=== PATIENT | male | born 2000 | race Two or more races ===

== ENCOUNTER 2022-10-14 21:42 | Emergency (ER) | payer OTHER ==
[~2022-10-14] VITALS: Ht 170.2 cm; Wt 59.0 kg
[2022-10-15 02:04] VITALS: BP 123/71
[2022-10-15] MEDS ORDERED: NEOMYCIN-BACITRACIN-POLYM UNITDOSE PKG TOP OINT TOP ONE (02:45)
[2022-10-15] MEDS ORDERED: IBUPROFEN 600 MG TAB PO ONE (02:45)
[2022-10-15] MEDS ORDERED: LIDOCAINE 1% HCL (LOCAL ANESTH.) INJ 20ML MDV ID ONE (02:45)
[2022-10-15] MEDS ORDERED: CEPHALEXIN 250 MG CAP PO ONE (04:30)
[2022-10-15] MEDS ORDERED: CEPH500T PO (04:47)
[2022-10-15] MEDS ORDERED: CYCL-839 PO (04:47)
[2022-10-15] MEDS ORDERED: MUPI2OIN2 EX (04:47)
[2022-10-15] MEDS ORDERED: IBU600T PO (04:47)
== END 2022-10-15 04:54 | disposition home or self-care (01) ==
LOC: ER 21:42
DX: S01.01XA Laceration without foreign body of scalp, initial encounter (principal); S50.311A Abrasion of right elbow, initial encounter; S40.211A Abrasion of right shoulder, initial encounter; W18.09XA Striking against other object with subsequent fall, initial encounter; Y93.89 Activity, other specified; Y92.89 Other specified places as the place of occurrence of the external cause; Y99.8 Other external cause status
CPT/HCPCS: 70450; 70486; 72125; 73030; 73080; 99284; J2001; 12004